=== PATIENT | female | born 1985 | race Caucasian/White ===

== ENCOUNTER 2016-03-24 19:09 | Emergency (ER) | payer MEDICAID ==
[~2016-03-24] VITALS: Ht 162.6 cm; Wt 86.5 kg
[~2016-03-24 19:09] MED LIST: CORTIS10A LEFT EAR; Z.0.BCPILL PO
[2016-03-24 19:23] VITALS: BP 120/93; PULSE 102; RESP 18; TEMP 97.9; O2SAT 100
[2016-03-24] MEDS ORDERED: BIRTH CONTROL PO (19:34)
[2016-03-24] MEDS ORDERED: methylPREDNISolone SOD SUCC 125 MG/2 ML VIAL IM ONE (19:45)
--- NOTE | 2016-03-24 19:45 | PD ---
HPI Chief Complaint: Cold / Flu Symptoms Time Seen by Provider: 19:39 Travel History International Travel<30 days: No Contact w/Intl Traveler<30days: No Traveled to known affect area: No History of Present Illness HPI Patient is a 30-year-old female chief complaint of cough. Present for 3 days. It is dry. She states it is hacking and nagging in nature. She endorses myalgias and nasal congestion and rhinorrhea as well. She denies any fevers. She denies sore throat. Today she began developing some chest discomfort with coughing, not pleuritic. She has some mild wheezing, no history of asthma. She denies resting chest pain. She denies fever. She denies any pain or swelling in her legs or history of DVT/PE. PFSH Past Medical History Hx Anticoagulant Therapy: No Cardiovascular Problems: Yes (GESTATIONAL HTN BUT RESOLVED NOW ) Chemotherapy: No Cerebrovascular Accident: No Diabetes: No Diminished Hearing: No Respiratory: No Immunizations Current: Yes Tetanus Vaccination: > 5 Years Influenza Vaccination: No ?: Not LMP: 03/16/16 : 4 Para: 2 Miscarriage: 2 : 0 Ectopic : Yes Dilation and Curettage (D&C): No Tubal Ligation: Yes (2011) Past Surgical History Section: Yes (x2) Cholecystectomy: Yes (2006) Hysterectomy: No Other Surgery: Yes (R. oophorectomy) Social History Alcohol Use: No Tobacco Use: No Substance Use: No Allergies-Medications (Allergen,Severity, Reaction): Coded Allergies: Aspirin (Verified Allergy, Severe, Nausea/Vomiting, 03/24/16) Phenergan (Verified Allergy, Severe, Nausea/Vomiting, 03/24/16) Tamiflu (Verified Allergy, Unknown, 03/24/16) Reported Meds & Prescriptions Reported Meds & Active Scripts Active Proair Hfa 8.5 GM Inh (Albuterol Sulfate) 90 Mcg/Act Aer 2 Puff INH Q4-6H PRN 108 mcg/actuation Tessalon Perles (Benzonatate) 100 Mg Cap 100-200 Mg PO TID PRN Prednisone 20 Mg Tab 40 Mg PO DAILY 5 Days Reported [ Control] 1 Tab PO DAILY Review of Systems Except as stated in HPI: all other systems reviewed are Neg Physical Exam Narrative GENERAL: Well-developed and well-nourished adult female in no acute distress. SKIN: Warm and dry. Good turgor without tenting. HEAD: Normocephalic and atraumatic. EYES: PERRL bilaterally, 5mm. EOMI bilaterally. No injection or icterus present. No proptosis. Lids without edema or erythema. ENT: Buccal mucosa pink and moist. Oropharynx free of erythema, tonsillar hypertrophy, masses, swelling, asymmetry and exudates. Uvula midline and airway patent. NECK: Supple, no meningeal signs. Trachea midline, no JVD. No cervical or facial lymphadenopathy. CARDIOVASCULAR: Regular rate(92bpm) and rhythm without murmurs, rubs, clicks or gallops. Radial and posterior tibial pulses 2+ bilaterally. No pedal edema. Negative bilateral Homans sign. RESPIRATORY: Very mild end expiratory wheezing with scattered rhonchi. No rales auscultated. No distress or use of accessory muscles. Speaks in full sentences. No stridor, tripoding or drooling. GASTROINTESTINAL: Non-tender, non-distended. Normal bowel sounds all 4 quadrants. No masses or organomegaly present. MUSCULOSKELETAL: Some discomfort with palpation of the left anterior ribs without crepitus or step-offs. No gait disturbances. Patient freely moving all four extremities spontaneously. Extremities without clubbing, cyanosis, or edema. No obvious deformities. NEUROLOGIC: CN II-XII grossly intact. Awake and alert. Motor grossly within normal limits. Normal speech. PSYCHIATRIC: Appropriate mood and affect; insight and judgment normal. Data Data Last Documented VS Vital Signs Date Time Temp Pulse Resp B/P Pulse Ox O2 Delivery O2 Flow Rate FiO2 03/24/16 19:31 Room Air 03/24/16 19:23 97.9 102 18 120/93 100 Orders Methylprednisolone So Succ Inj (Solumedr (03/24/16 19:45) Albuterol-Ipratropium Neb (Duoneb Neb) (03/24/16 19:45) MDM Medical Decision Making Medical Screen Exam Complete: Yes Emergency Medical Condition: Yes Differential Diagnosis Acute bronchitis versus viral syndrome versus pneumonia versus costochondritis Narrative Course Patient is a 30-year-old female with a 3 day history of nasal symptoms, cough and myalgias without fever. She has mild wheezing and rhonchi on exam, no rales auscultated. No increased work of breathing and oxygen saturation is 100 % on room air. She has some reproducible left sided chest discomfort which began only today after coughing for 3 days. It is reproducible there is no sign of DVT on exam. Heart rate 102 in triage or on my exam it is 92 and regular. Given the respiratory symptoms and the wheezing and rhonchi that do not believe the patient has a PE. No signs of pneumonia. I believe any further emergent workup is warranted for this at this time. She was given Solu- Medrol 125 mg IM and DuoNeb 2. The patient reports much improvement in her symptoms after this and she has resolution of her cough. She will be given oxygen for albuterol, Tessalon Perles and prednisone for acute bronchitis. Recommend follow-up with PCP in one to 2 days.See discharge paperwork for further instructions. The plan was discussed with the patient who acknowledged their understanding and agreement. Reinforced the follow-up with primary care is critically important. Patient instructed on emergent conditions that should prompt return to ED. Diagnosis Primary Impression: Acute bronchitis Qualified Code: J20.9 - Acute bronchitis, unspecified organism Patient Instructions: Acute Bronchitis (ED), General Instructions Departure Forms: Tests/Procedures, Work Release Enter return to work date: Mar 26, 2016 Additional Instructions: Take medication as prescribed OTC Mucinex, cough suppressants, and decongestants as needed OTC Tylenol or Ibuprofen for fever and discomfort Drink lots of fluid to help clear mucous/drainage and stay hydrated Follow up with PCP in 2 days Return to the ED for any acute worsening of symptoms Med/Other Pt SpecificInfo: Prescription(s) given Scripts Albuterol Neb 2.5 Mg/3 Ml Neb2.5 Mg NEB Q4HR NEB #30 NEBULE Ref 0 While awake Prov:Santi Barreto MD 03/24/16 Albuterol 8.5 GM Inh (Proair Hfa 8.5 GM Inh)90 Mcg/Act Aer2 Puff INH Q4-6H PRN ( SHORTNESS OF BREATH) #1 INHALER 108 mcg/actuation Prov:Santi Barreto MD 03/24/16 Benzonatate (Tessalon Perles)100 Mg Sog325-443 Mg PO TID PRN (COUGH) #20 CAP Prov:Santi Barreto MD 03/24/16 Prednisone 20 Mg Tab40 Mg PO DAILY 5 Days Prov:Santi Barreto MD 03/24/16 Disposition: 01 DISCHARGE HOME Condition: Stable Yuri Morillo III Mar 24, 2016 19:45
[2016-03-24] MEDS ORDERED: ALBUAER3 INH (19:46)
[2016-03-24] MEDS ORDERED: BENZ100 PO (19:46)
[2016-03-24] MEDS ORDERED: PRED20 PO (19:46)
[2016-03-24] MEDS: RESP: ALBUTEROL 2.5 MG/IPRATROPIUM 0.5 MG NEB (SCH) INH (19:49)
[2016-03-24] MEDS ORDERED: ALBU0.08 NEB (20:25)
[2016-03-24 20:29] VITALS: BP 162/85; PULSE 109; RESP 17; O2SAT 98
== END 2016-03-24 21:03 | disposition home or self-care (01) ==
LOC: PHEFT 19:09
DX: J20.9 Acute bronchitis, unspecified (principal); M79.1 Myalgia; R09.81 Nasal congestion; J34.89 Other specified disorders of nose and nasal sinuses; R07.9 Chest pain, unspecified
CPT/HCPCS: 94640; 94664; 96372; 99283; J2930

== ENCOUNTER 2016-06-26 19:33 | Emergency (ER) | payer MEDICAID ==
[~2016-06-26] VITALS: Ht 162.6 cm; Wt 86.4 kg
[~2016-06-26 19:33] MED LIST changes: +ALBU0.08 NEB; +ALBUAER3 INH; +BENZ100 PO; +BIRTH CONTROL PO; -CORTIS10A LEFT EAR; +PRED20 PO; -Z.0.BCPILL PO
[2016-06-26 19:47] VITALS: BP 145/114; PULSE 100; RESP 20; TEMP 98.1; O2SAT 100
[2016-06-26 20:03] VITALS: BP 145/79
--- NOTE | 2016-06-26 20:27 | PD ---
HPI Chief Complaint: Respiratory Symptoms Time Seen by Provider: 20:25 Travel History International Travel<30 days: No Contact w/Intl Traveler<30days: No Traveled to known affect area: No History of Present Illness HPI The patient is a 30-year-old female that complains of her nose being clog the last 3 or 4 days. She states she has a difficult time lying down. She has an earache but her most concerning symptom is a headache behind the right eye. The headache is of gradual onset. She denies any fever. PFSH Past Medical History Hx Anticoagulant Therapy: No Cardiovascular Problems: Yes (GESTATIONAL HTN BUT RESOLVED NOW ) Chemotherapy: No Cerebrovascular Accident: No Diabetes: No Diminished Hearing: No Hypertension: Yes (GESTATIONAL) Respiratory: No Immunizations Current: Yes Shingles: Yes Influenza Vaccination: No ?: Not LMP: 06-12-16 : 4 Para: 2 Miscarriage: 2 : 0 Ectopic : Yes Dilation and Curettage (D&C): No Tubal Ligation: Yes (2012: RIGHT) Past Surgical History Section: Yes (x2) Cholecystectomy: Yes (2006) Gynecologic Surgery: Yes (RIGHT OOPHORECTOMY) Hysterectomy: No Other Surgery: Yes (R. oophorectomy) Family History Family Myocardial Infarction: Yes (FATHER) Social History Alcohol Use: No Tobacco Use: No Substance Use: No Allergies-Medications (Allergen,Severity, Reaction): Coded Allergies: Aspirin (Verified Allergy, Severe, Nausea/Vomiting, 06/26/16) Phenergan (Verified Allergy, Severe, Nausea/Vomiting, 06/26/16) Tamiflu (Verified Allergy, Unknown, 06/26/16) Reported Meds & Prescriptions Reported Meds & Active Scripts Active Albuterol Neb (Albuterol Sulfate) 2.5 Mg/3 Ml Neb 2.5 Mg NEB Q4HR NEB While awake Proair Hfa 8.5 GM Inh (Albuterol Sulfate) 90 Mcg/Act Aer 2 Puff INH Q4-6H PRN 108 mcg/actuation Reported [ Control] 1 Tab PO DAILY Review of Systems Except as stated in HPI: all other systems reviewed are Neg Physical Exam Narrative GENERAL: Well-nourished, well-developed patient in slight apparent distress with her headache. Her vital signs show blood pressure 145/114 but repeat is 145/79 and heart rate is 100 but the rest the vital signs are normal.. SKIN: Focused skin assessment warm/dry. HEAD: Normocephalic. EYES: No scleral icterus. No injection or drainage. NECK: Supple, trachea midline. No JVD or lymphadenopathy. CARDIOVASCULAR: Regular rate and rhythm without murmurs, gallops, or rubs. RESPIRATORY: Breath sounds equal bilaterally. No accessory muscle use. GASTROINTESTINAL: Abdomen soft, non-tender, nondistended. MUSCULOSKELETAL: No cyanosis, or edema. BACK: Nontender without obvious deformity. No CVA tenderness. ENT: The right tympanic membrane is red and dull. The canals are normal and the left tympanic membrane is normal. There is sinus tenderness when pressing on the nose and this reproduces the patient's pain. Also some slight maxillary tenderness is present. Data Data Last Documented VS Vital Signs Date Time Temp Pulse Resp B/P Pulse Ox O2 Delivery O2 Flow Rate FiO2 06/26/16 20:03 145/79 06/26/16 19:59 100 Room Air 06/26/16 19:47 98.1 100 20 MDM Medical Decision Making Medical Screen Exam Complete: Yes Emergency Medical Condition: Yes Medical Record Reviewed: Yes Differential Diagnosis Acute sinusitis, migraine headache, otitis media, allergic rhinitis, viral rhinosinusitis, sinus headache Narrative Course The patient appears to have a right otitis media with Diagnosis Primary Impression: Acute right otitis media Additional Impressions: Sinusitis Rhinitis Scripts Hydrocodone-Acetaminophen (Lortab)5-325 Mg Tab1 Tab PO Q6H PRN (PAIN) #15 TAB Ref 0 Prov:Santi Barreto MD 06/26/16 Amoxicillin-Clavulanate (Augmentin)875-125 mg [id number] Mg PO BID 10 Days Ref 0 not for use in CrCl <30 ml/min. Prov:Santi Barreto MD 06/26/16 Pseudoephedrine-Guaifenesin (Entex T)60-375 Mg Tab1 Tab PO Q6HR #35 Prov:Santi Barreto MD 06/26/16 Disposition: 01 DISCHARGE HOME Condition: Stable Santi Barreto MD June 26, 2016 20:27
[2016-06-26] MEDS ORDERED: AUGM875T PO (20:46)
[2016-06-26] MEDS ORDERED: [UNRECOGNIZED DRUG - CODE] PO (20:46)
[2016-06-26] MEDS ORDERED: HYDR-3533 PO (20:46)
== END 2016-06-26 21:02 | disposition home or self-care (01) ==
LOC: PHED 19:33
DX: H66.91 Otitis media, unspecified, right ear (principal); J01.90 Acute sinusitis, unspecified; J00 Acute nasopharyngitis [common cold]; R51 Headache; Z79.899 Other long term (current) drug therapy
CPT/HCPCS: 99283